=== PATIENT | male | born 1945 | race Hispanic/Latino ===

== ENCOUNTER 2021-08-30 19:57 | Emergency (ER) | payer OTHER ==
[2021-08-30] MEDS ORDERED: BUPIVACAINE 0.5% PF 10 ML VIAL ONE (20:44)
[2021-08-30] MEDS ORDERED: LIDOCAINE 1% MPF 30 ML VIAL ONE (20:46)
[2021-08-30] MEDS ORDERED: MORPHINE 4 MG/ML SYR ONE ×2 (20:48→22:42)
[2021-08-30] MEDS ORDERED: ONDANSETRON 4 MG/2 ML VIAL ONE (20:48)
[2021-08-30] MEDS ORDERED: LORazepam 2 MG/ML VIAL ONE (22:15)
[2021-08-30] MEDS ORDERED: CEFAZOLIN SODIUM 1 GM/VIAL ONE (23:48)
[2021-08-30] MEDS ORDERED: NA CHLORIDE 0.9% 100 ML IV ONE (23:48)
[2021-08-30] MEDS ORDERED: TETANUS & DIPHTHERIA TOX,ADULT 0.5 ML VIAL ONE (23:48)
--- NOTE | 2021-08-30 23:57 | EDPHYS ---
Physician Documentation [facility] Name: Carlo Faulkner Age: 76 yrs Sex: Male : 1945 Arrival Date: 08/30/2021 Time: 20:00 Bed 16 Private MD: ED Physician Ezequiel Villegas HPI: 08/31 00:43 This 76 yrs old Male presents to ER via EMS with complaints of Right arm jmm laceration. 00:43 The patient or guardian complains of injury, pain. Onset: The symptoms/episode jmm began/occurred acutely, just prior to arrival. Treatment prior to arrival includes: elevation of the extremity, applying pressure to the affected area. Is a 76-year-old male the presents emerged department with a laceration to the right arm. Patient states that he slipped and fell into a nail/screw. Denies other known injury. Patient is unsure on tetanus immunization status.. Historical: - Allergies: 00:20 No Known Allergies; bp - Immunization history:: Adult Immunizations up to date, Client reports receiving the 2nd dose of the Covid vaccine, Last tetanus immunization: up to date. - Social history:: Smoking status: Patient denies any tobacco usage or history of. ROS: 00:43 Constitutional: Negative for fever, chills, and weight loss, Cardiovascular: Negative jmm for chest pain, palpitations, and edema, Respiratory: Negative for shortness of breath, cough, wheezing, and pleuritic chest pain. 00:43 MS/extremity: Positive for injury or acute deformity, laceration. 00:43 All other systems are negative. Exam: 00:43 Constitutional: This is a well developed, well nourished patient who is awake, alert, jmm and in no acute distress. Head/Face: atraumatic. Eyes: EOMI, no conjunctival erythema appreciated ENT: Moist Mucus Membranes Neck: Trachea midline, Supple Chest/axilla: Normal chest wall appearance and motion. Cardiovascular: Regular rate and rhythm. No edema appreciated Respiratory: Normal respirations, no respiratory distress appreciated Abdomen/GI: Non distended, soft Back: Normal ROM 00:43 Skin: 12 cm laceration noted to the right biceps region, no muscle seen, no obvious foreign body. 00:43 Neuro: Orientation: is normal, Mentation: is normal, Memory: is normal. 00:43 Psych: Behavior/mood is pleasant, cooperative. Vital Signs: 00:17 BP 137 / 81 LA Supine (auto/reg); Pulse 79 MON; Resp 16 S; Pulse Ox 96% ; Pain 4/10; bp Laceration: 00:45 Wound Repair of 12cm ( 4.7in ) subcutaneous laceration to right arm. Distal jmm neuro/vascular/tendon intact. Anesthesia: Local anesthetic administered with 10 mls of Lido/Marcaine. Wound prep: Extensive cleansing with betadine by me, Wound explored extensively, Copious irrigation. Skin closed with 26 3-0 Prolene using simple sutures and sterile technique. Subcutaneous tissue closed with 4 3-0 Vicryl using simple sutures and sterile technique. Patient tolerated well. MDM: 08/30 20:23 Patient medically screened. holly 23:55 Data reviewed: vital signs, nurses notes. Counseling: I had a detailed discussion with holly the patient and/or guardian regarding: the historical points, exam findings, and any diagnostic results supporting the discharge/admit diagnosis, the need for outpatient follow up, to return to the emergency department if symptoms worsen or persist or if there are any questions or concerns that arise at home. 08/31 00:45 ED course: Patient is alert not toxic in appearance in the ED. Wound was copiously jmm irrigated. Patient given wound infection return precautions advised follow-up with general surgery for reevaluation. Patient otherwise given strict return precautions. Patient understood agrees to plan of care.. Administered Medications: 08/30 20:42 Drug: Marcaine (bupivacaine) (0.5 %) 20 ml Volume: 10 ml; Route: Infiltration; bp 23:59 Follow up: Response: No adverse reaction bp 08/31 00:00 Follow up: Response: No adverse reaction bp 08/30 20:53 Drug: Zofran (Ondansetron) 4 mg Route: IVP; Site: left forearm; bp 08/31 00:00 Follow up: Response: No adverse reaction; Nausea is decreased bp 08/30 20:54 Drug: morphine 4 mg Route: IVP; Site: left forearm; bp 08/31 00:00 Follow up: Response: No adverse reaction bp 08/30 22:15 Drug: LORazepam 0.5 mg Route: IVP; Site: left forearm; bp 23:59 Follow up: Response: No adverse reaction; Anxiety decreased bp 22:45 CANCELLED (wrong routee): morphine 4 mg IM once; RASS on ADMIN: Combtv4, Very Agttd3, bp Agttd2, Rstlss1, AlertClm0, Drwsy-1, Lt Sdtn-2, Mod Sdtn-3, Dp Sdtn-4, UnArsble-5 22:46 Drug: morphine 4 mg Route: IVP; Site: left forearm; bp 23:59 Follow up: Response: No adverse reaction; Pain is decreased bp 23:57 Drug: Tetanus-Diphtheria Toxoid Adult 0.5 ml {[employer]: [employer]. Exp: bp 10/30/2022. Lot #: [id number]. } Route: IM; Site: left deltoid; 23:59 Drug: Ancef (cefazolin) 1 grams Route: IVPB; Site: left forearm; bp Disposition: 08/31 07:01 Co-signature as Attending Physician, Ezequiel Villegas DO I agree with the assessment and ms3 plan of care. Disposition Summary: 08/30/21 23:57 Discharge Ordered Location: Home [facility] Condition: Stable [facility] Diagnosis - Laceration of the Right arm [facility] Followup: [facility] - With: Rahul Boothe MD - When: 2 weeks - Reason: Recheck today's complaints, Continuance of care, Re-evaluation by your physician Discharge Instructions: - Discharge Summary Sheet [facility] - Laceration Care, Adult [facility] Forms: - Medication Reconciliation Form [facility] - Thank You Letter [facility] - Antibiotic Education [facility] - Prescription Opioid Use [facility] Prescriptions: - Clindamycin HCl 300 mg Oral Capsule - take 1 capsule by ORAL route every 6 hours for 10 days; 40 capsule; Refills: 0, [facility] Product Selection Permitted - Ultracet 37.5-325 mg Oral Tablet - take 1 tablet by ORAL route every 6 hours - for up to 5 days; do not exceed 8 jm tablets per day.; 20 tablet; Refills: 0, Product Selection Permitted Signatures: Cabrera Liz PA PA jmm Peltier, Brian, RN RN Ezequiel Almonte DO DO ms3 Corrections: (The following items were deleted from the chart) 08/30 22:45 22:44 morphine 4 mg IM once; RASS on ADMIN: Combtv4, Very Agttd3, Agttd2, Rstlss1, bp AlertClm0, Drwsy-1, Lt Sdtn-2, Mod Sdtn-3, Dp Sdtn-4, UnArsble-5 ordered. bp
--- NOTE | 2021-08-31 01:12 | ER ---
Nurse's Notes [facility] Name: Carlo Faulkner Age: 76 yrs Sex: Male : 1945 Arrival Date: 08/30/2021 Time: 20:00 Bed 16 Private MD: Diagnosis: Laceration of the Right arm Presentation: 08/31 00:17 Chief complaint: Patient states: right arm wound. Coronavirus screen: Client denies bp travel out of the [place] in the last 14 days. Ebola Screen: No symptoms or risks identified at this time. Initial Sepsis Screen: Does the patient meet any 2 criteria? No. Patient's initial sepsis screen is negative. Does the patient have a suspected source of infection? No. Patient's initial sepsis screen is negative. Risk Assessment: Do you want to hurt yourself or someone else? Patient reports no desire to harm self or others. Onset of symptoms was August 30, 2021. 00:17 Method Of Arrival: EMS: [facility] bp 00:17 Acuity: PEPE 3 bp Triage Assessment: 00:20 General: Appears distressed, uncomfortable. Pain: Complains of pain in right arm. bp 00:25 General: Behavior is calm, cooperative, appropriate for age. bp Historical: - Allergies: 00:20 No Known Allergies; bp - Immunization history:: Adult Immunizations up to date, Client reports receiving the 2nd dose of the Covid vaccine, Last tetanus immunization: up to date. - Social history:: Smoking status: Patient denies any tobacco usage or history of. Screenin:22 Abuse screen: Denies threats or abuse. Nutritional screening: No deficits noted. bp Tuberculosis screening: No symptoms or risk factors identified. Fall Risk None identified. Vital Signs: 00:17 BP 137 / 81 LA Supine (auto/reg); Pulse 79 MON; Resp 16 S; Pulse Ox 96% ; Pain 4/10; bp ED Course: 08/30 20:00 Patient arrived in ED. kc5 20:10 Cabrera Liz PA is PHCP. yuri 20:11 Ezequiel Villegas DO is Attending Physician. jmm 20:42 Marshall Elena, SAMM is Primary Nurse. bp 23:56 Rahul Boothe MD is Referral Physician. [facility] 08/31 00:20 Triage completed. bp 00:20 Arm band placed on right wrist. bp 00:22 Patient has correct armband on for positive identification. Bed in low position. Call bp light in reach. Side rails up X2. Adult w/ patient. 00:22 No provider procedures requiring assistance completed. IV discontinued. bp Administered Medications: 08/30 20:42 Drug: Marcaine (bupivacaine) (0.5 %) 20 ml Volume: 10 ml; Route: Infiltration; bp 23:59 Follow up: Response: No adverse reaction bp 08/31 00:00 Follow up: Response: No adverse reaction bp 08/30 20:53 Drug: Zofran (Ondansetron) 4 mg Route: IVP; Site: left forearm; bp 08/31 00:00 Follow up: Response: No adverse reaction; Nausea is decreased bp 08/30 20:54 Drug: morphine 4 mg Route: IVP; Site: left forearm; bp 08/31 00:00 Follow up: Response: No adverse reaction bp 08/30 22:15 Drug: LORazepam 0.5 mg Route: IVP; Site: left forearm; bp 23:59 Follow up: Response: No adverse reaction; Anxiety decreased bp 22:45 CANCELLED (wrong routee): morphine 4 mg IM once; RASS on ADMIN: Combtv4, Very Agttd3, bp Agttd2, Rstlss1, AlertClm0, Drwsy-1, Lt Sdtn-2, Mod Sdtn-3, Dp Sdtn-4, UnArsble-5 22:46 Drug: morphine 4 mg Route: IVP; Site: left forearm; bp 23:59 Follow up: Response: No adverse reaction; Pain is decreased bp 23:57 Drug: Tetanus-Diphtheria Toxoid Adult 0.5 ml {[employer] Worker: [employer]. Exp: bp 10/30/2022. Lot #: [id number]. } Route: IM; Site: left deltoid; 23:59 Drug: Ancef (cefazolin) 1 grams Route: IVPB; Site: left forearm; bp Outcome: 23:57 Discharge ordered by MD. barrera 08/31 00:22 Discharged to home bp Condition: improved Discharge instructions given to patient, family. 01:11 Patient left the ED. bp Signatures: Cabrera Liz PA PA jmm Peltier, Brian, RN RN bp Dana Rucker [email or web address]
[2021-08-31 02:41] VITALS: BP 137/81; O2SAT 96
== END 2021-08-31 01:11 | disposition home or self-care (01) ==
LOC: ER 19:57
PROC: 0JQG0ZZ Repair Right Lower Arm Subcutaneous Tissue and Fascia, Open Approach (ICD-10-PCS; principal; 2021-08-31)
DX: S41.111A Laceration without foreign body of right upper arm, initial encounter (principal); W01.118A Fall on same level from slipping, tripping and stumbling with subsequent striking against other sharp object, initial encounter; Z23 Encounter for immunization
CPT/HCPCS: 90471; 90714; 96375; 96374; 99283; 12004; J2405; J0690